=== PATIENT | female | born 1960 | race Hispanic/Latino ===

== ENCOUNTER 2018-01-12 02:14 | Emergency (ER) | payer OTHER ==
[~2018-01-12] VITALS: Ht 162.6 cm; Wt 68.0 kg
[~2018-01-12 02:14] MED LIST: ACETAMINOPHEN-1 EAC4 PO; ALPRAZOLAM0.5 MG PO; ASPIRIN ENTERI325 MG PO; ASPIRIN81 MG PO; Aspirin PO; GUAIFENESIN DM118 ML NG; IBUPROFEN400 MG PO; KLONOPIN1 MG; LEXAPRO10 MG PO; LEXAPRO20 MG PO; LORCET 10-6501 EACH PO; MELOXICAM7.5 MG PO; NICODERM CQ1 EAC2 TOP; NITROSTAT0.4 MG SL; NORCO 10-325 T1 EACH PO; NORCO 5-325 TA1 EACH PO; OMEPRAZOLE40 MG PO; PEPCID20 MG PO; POTASSIUM PHOSPHATE PO; PREDNISONE20 MG PO; SOMA250 MG; SOMA350 MG PO; TESSALON PERLE100 MG PO; TRAZODONE HCL50 MG PO; ULTRAM 50MG50 MG PO; VIBRAMYCIN100 MG PO
--- OUTSIDE RECORDS SUMMARY | 2018-01-12 02:17 | XMS REPORT ---
Author Author [facility] Address Unknown Phone Unavailable Care Team Providers Care Commercial Manager Name Role Phone LUIS SULLIVAN Unavailable Unavailable Problems This patient has no known problems. Allergies, Adverse Reactions, Alerts This patient has no known allergies or adverse reactions. Medications This patient has no known medications. Results Test Description Test Time Test Comments Text Results Atomic Results Result Comments CHEST 2 VIEWS [place] [address] Patient Name: DEB RENEE MR #: [id number] : 1960 Age/Sex: 56/F Req #: [id number] Adm Physician: Ordered by: LUIS SULLIVAN MD Report #: [id number] Location: ER Room/Bed: Procedure: [id number] DX/CHEST 2 VIEWS Exam Date: 06/15/17 Exam Time : 2215 REPORT STATUS: Signed EXAM: CHEST 2 VIEWS, PA and lateral DATE : 06/15/2017 10:14 PM Time stamp on exam: 2214 hours INDICATION: Back pain left side COMPARISON: AP view of the chest July 11, [address] of the chest July 11, 2016 FINDINGS: LINES/TUBES: None LUNGS: Emphysematous changes and pulmonary nodules in the upper lungs. PLEURA: No effusions or pneumothorax. HEART AND MEDIASTINUM: Normal size and contour. BONES AND SOFT TISSUES: No acute findings. Degenerative changes of the lower thoracic spine. IMPRESSION: No acute findings. Emphysematous changes and pulmonary nodules in the upper lungs as seen on prior CT. The patient is due for routine follow-up of nodules with CT imaging (CT of the chest without IV contrast low-dose protocol) if not already performed at an outside facility. Signed by: Dr. Kaiden Gould M.D. on 06/15/2017 10:46 PM Dictated By: KAIDEN GOULD MD 44 Transcribed By: CHIRAG on 2245 COPY TO: LUIS SULLIVAN MD
[2018-01-12] MEDS ORDERED: ASPIRIN 81 MG CHEW TAB PO ONE (02:45)
[2018-01-12 02:57] LABS: BASOPHILS # (AUTO) 0.1 (0.0-0.1); BASOPHILS % 0.6 % (0.0-1.0); EOSINOPHILS % 0.5 % (0.0-6.0); HEMATOCRIT 34.3 % (34.2-44.1); HEMOGLOBIN 11.6 g/dL (12.0-16.0); MEAN CORPUSCULAR HEMOGLOBIN 30.6 pg (28-32); MEAN CORPUSCULAR HGB CONC 33.8 g/dL (31-35); MEAN CORPUSCULAR VOLUME 90.5 fL (81-99); MONOCYTES # (AUTO) 0.7 (0.2-0.8); MONOCYTES % 8.5 % (4.4-11.3); NEUTROPHILS # (AUTO) 5.5 (2.1-6.9); PLATELET COUNT 177 x10e3/uL (140-360); RED BLOOD COUNT 3.79 x10e6/uL (3.6-5.1); RED CELL DISTRIBUTION WIDTH 13.2 % (11.7-14.4)
[2018-01-12 03:02] LABS: CLARITY,URINE CLEAR (CLEAR); COLOR,URINE YELLOW (YELLOW); LEUKOCYTE ESTERASE ,URINE NEGATIVE (NEGATIVE); NITRITE,URINE NEGATIVE (NEGATIVE); PROTEIN,URINE DIPSTICK TRACE (NEGATIVE)
[2018-01-12 03:03] LABS: BILIRUBIN,URINE NEGATIVE (NEGATIVE); KETONES,URINE NEGATIVE (NEGATIVE); URINE UROBILINOGEN 0.2 mg/dL (0.2 - 1)
[2018-01-12 03:10] LABS: BACTERIA,URINE RARE /HPF; EPITHELIAL CELLS,URINE RARE /LPF; INR 1.09; PROTHROMBIN TIME 13.3 seconds (11.9-14.5); RBC,URINE 0-5 /HPF (0-5); WBC,URINE (MAN) 0-5 /HPF (0-5)
[2018-01-12 03:11] LABS: PARTIAL THROMBOPLASTIN TIME 32.6 seconds (23.8-35.5)
[2018-01-12 03:18] LABS: ALANINE AMINOTRANSFERASE 16 IU/L (0-55); ALBUMIN 3.5 g/dL (3.5-5.0); ALBUMIN/GLOBULIN RATIO 1.2 (0.8-2.0); ALKALINE PHOSPHATASE 65 IU/L (40-150); ANION GAP 10.2 mmol/L (8-16); BLOOD UREA NITROGEN 5 mg/dL (7-26); BUN/CREATININE RATIO 7 (6-25); CALCIUM 8.4 mg/dL (8.4-10.2); CARBON DIOXIDE 17 mmol/L (22-29); CHLORIDE 112 mmol/L (98-107); CREATINE KINASE 578 IU/L (29-168); CREATININE, SERUM 0.68 mg/dL (0.57-1.11); EST GLOMERULAR FILTRATION RATE > 60 ML/MIN (60-); GLUCOSE 110 mg/dL (74-118); POTASSIUM 3.2 mmol/L (3.5-5.1); SODIUM 136 mmol/L (136-145)
--- NOTE | 2018-01-12 03:29 | Diagnostic Imaging Report ---
EXAM: CHEST SINGLE (PORTABLE), AP 1 view INDICATION: Chest pain COMPARISON: PA and lateral view of the chest June 15, 2017 FINDINGS: LINES/TUBES: None LUNGS: No consolidations or edema. Subsegmental atelectasis right lung base. PLEURA: No effusions or pneumothorax. HEART AND MEDIASTINUM: Normal size and contour. BONES AND SOFT TISSUES: No acute findings. IMPRESSION: Subsegmental atelectasis right lung base. Signed by: Dr. Angelita Pyle M.D. on 01/12/2018 3:25 AM
[2018-01-12] MEDS ORDERED: KETOROLAC TROMETHAMINE 30 MG/ML VIAL IV STA (03:39)
== END 2018-01-12 03:50 | disposition home or self-care (01) ==
LOC: ER 02:14
DX: R07.89 Other chest pain (principal); G89.29 Other chronic pain; F31.9 Bipolar disorder, unspecified; F17.200 Nicotine dependence, unspecified, uncomplicated
CPT/HCPCS: 36415; 71045; 80053; 81001; 82550; 82553; 83880; 84484; 85025; 85610; 85730; 93005; 99283

== ENCOUNTER → 2020-09-13 | Day surgery (SDC) | payer MEDICARE, OTHER ==
[2020-09-09 14:48] LABS: BASOPHILS % 0.7 % (0.0-1.0); EOSINOPHILS # (AUTO) 0.1 (0.0-0.4); HEMATOCRIT 40.3 % (34.2-44.1); HEMOGLOBIN 12.1 g/dL (12.0-16.0); LYMPHOCYTES # (AUTO) 1.8 (1.0-3.2); LYMPHOCYTES % 30.5 % (18.0-39.1); MEAN CORPUSCULAR HEMOGLOBIN 26.9 pg (28-32); MEAN CORPUSCULAR VOLUME 89.6 fL (81-99); MONOCYTES # (AUTO) 0.6 (0.2-0.8); MONOCYTES % 9.6 % (4.4-11.3); NEUTROPHILS # (AUTO) 3.5 (2.1-6.9); PLATELET COUNT 222 x10e3/uL (140-360); RED CELL DISTRIBUTION WIDTH 13.5 % (11.7-14.4)
[2020-09-09 15:03] LABS: ANION GAP 11.6 mmol/L (8-16); CALCIUM 9.5 mg/dL (8.4-10.2); CREATININE, SERUM 1.05 mg/dL (0.57-1.11); POTASSIUM 4.6 mmol/L (3.5-5.1)
[~2020-09-13] MED LIST changes: +ADDERALL XR 3030 MG PO; +ALBUTEROL0.63 MG/3 INH; +BUPIVACAINE HCL 0.5% INJ 30 ML VIAL INJ ONE; +BUSPIRONE HCL10 MG PO; +CEFAZOLIN SOD 1 GM VIAL ONE; +CEFAZOLIN SOD 1 GM/NS 50ML 50 ML IV ONE; +CHANTIX1 EACH; +DEXAMETHASONE SOD PHOS INJ 4 MG/ML VIAL ONE; +FENTANYL CITRATE/PF 100MCG/2 ML INJ ONE; +FLOVENT DISKUS50 MCG INH; +GABAPENTIN300 MG PO; +HEPARIN SOD (PORCINE) 1000 UNIT/ML 30ML ONE; +HEPARIN SOD (PORCINE) 5,000 UNIT/ML VIAL ONE; +HEPARIN SOD/SOD CHLORIDE 1,000 ML ONE; +HYDROMORPHONE 2MG/ML 2 MG/ML ML ONE; +LINZESS72 MCG PO; +MIDAZOLAM HCL 2 MG/2 ML VIAL ONE; +MUPIROCIN 2% OINT 22 GM TUBE ONE; +ONDANSETRON HCL INJ 2MG/ML 2ML 2 MG/ML VIAL ONE; +PANTOPRAZOLE SO40 MG PO; +PAXIL40 MG PO; +PROAIR HFA INH8.5 GM INH; +PROPOFOL IV EMULSION 10 MG/ML 20 ML VIAL ONE; +PROTAMINE SULFATE 10 MG/ML 5 ML VIAL ONE; +REXULTI3 MG PO; +ROCURONIUM BROMIDE 10 MG/ML 5ML VIAL IV ONE; +SEVOFLURANE INHAL SOLN 250 ML PEN BTL ONE; +SODIUM CHLORIDE 0.9% 500ML 500 ML ONE; +SUBOXONE 8 MG-1 EAC2 PO; +SUGAMMADEX SODIUM 200 MG/2 ML VIAL IV ONE; +THROMBIN FOR SOLN 5,000 UNIT VIAL ONE; +WELLBUTRIN SR150 MG PO
[2020-09-13 12:20] VITALS: BP 126/84
== END | disposition home or self-care (01) ==
LOC: OR 06:38
PROVIDERS: ATTEND Surgery
DX: C38.1 Malignant neoplasm of anterior mediastinum (principal); J44.9 Chronic obstructive pulmonary disease, unspecified; K21.9 Gastro-esophageal reflux disease without esophagitis; K44.9 Diaphragmatic hernia without obstruction or gangrene; F17.210 Nicotine dependence, cigarettes, uncomplicated; Z01.810 Encounter for preprocedural cardiovascular examination; Z01.812 Encounter for preprocedural laboratory examination; Z01.818 Encounter for other preprocedural examination; Z20.828 Contact with and (suspected) exposure to other viral communicable diseases; Z88.8 Allergy status to other drugs, medicaments and biological substances
CPT/HCPCS: 36415; 39401; 71045; 71046; 80048; 85025; 87071; 87075; 87102; 87116; 87205; 87206 ×2; 88172; 88173; 88305; 88312; 88331; 88342; 93005; A4467; J0690 ×2; J1100; J1170; J1644; J2250; J2405; J2704; J3010; J7040; U0002; J2720

== ENCOUNTER 2021-07-02 20:08 | Inpatient (IN) | payer MEDICARE, OTHER ==
[~2021-07-02] VITALS: Ht 165.1 cm; Wt 68.9 kg
[~2021-07-02 20:08] MED LIST changes: -ALBUTEROL0.63 MG/3 INH; +ALBUTEROL0.63 MG/3 NEB; -BUPIVACAINE HCL 0.5% INJ 30 ML VIAL INJ ONE; -CEFAZOLIN SOD 1 GM VIAL ONE; -CEFAZOLIN SOD 1 GM/NS 50ML 50 ML IV ONE; -DEXAMETHASONE SOD PHOS INJ 4 MG/ML VIAL ONE; -FENTANYL CITRATE/PF 100MCG/2 ML INJ ONE; -HEPARIN SOD (PORCINE) 1000 UNIT/ML 30ML ONE; -HEPARIN SOD (PORCINE) 5,000 UNIT/ML VIAL ONE; -HEPARIN SOD/SOD CHLORIDE 1,000 ML ONE; -HYDROMORPHONE 2MG/ML 2 MG/ML ML ONE; -MIDAZOLAM HCL 2 MG/2 ML VIAL ONE; -MUPIROCIN 2% OINT 22 GM TUBE ONE; -ONDANSETRON HCL INJ 2MG/ML 2ML 2 MG/ML VIAL ONE; -PROPOFOL IV EMULSION 10 MG/ML 20 ML VIAL ONE; -PROTAMINE SULFATE 10 MG/ML 5 ML VIAL ONE; -ROCURONIUM BROMIDE 10 MG/ML 5ML VIAL IV ONE; -SEVOFLURANE INHAL SOLN 250 ML PEN BTL ONE; -SODIUM CHLORIDE 0.9% 500ML 500 ML ONE; -SUGAMMADEX SODIUM 200 MG/2 ML VIAL IV ONE; -THROMBIN FOR SOLN 5,000 UNIT VIAL ONE
[2021-07-02 21:18] LABS: BASOPHILS % 0.3 % (0.0-1.0); EOSINOPHILS # (AUTO) 0.2 (0.0-0.4); EOSINOPHILS % 2.3 % (0.0-6.0); HEMOGLOBIN 10.2 g/dL (12.0-16.0); LYMPHOCYTES # (AUTO) 0.7 (1.0-3.2); LYMPHOCYTES % 10.7 % (18.0-39.1); MEAN CORPUSCULAR HEMOGLOBIN 28.2 pg (28-32); MEAN CORPUSCULAR HGB CONC 30.9 g/dL (31-35); MEAN CORPUSCULAR VOLUME 91.2 fL (81-99); MONOCYTES # (AUTO) 0.6 (0.2-0.8); NEUTROPHILS # (AUTO) 5.3 (2.1-6.9); NEUTROPHILS % 77.4 % (38.7-80.0); PLATELET COUNT 173 x10e3/uL (140-360); RED BLOOD COUNT 3.62 x10e6/uL (3.6-5.1); RED CELL DISTRIBUTION WIDTH 13.3 % (11.7-14.4)
[2021-07-02 21:39] LABS: ALBUMIN 4.1 g/dL (3.5-5.0); ALBUMIN/GLOBULIN RATIO 1.5 (0.8-2.0); ANION GAP 12.1 mmol/L (8-16); CALCIUM 8.9 mg/dL (8.4-10.2); POTASSIUM 3.1 mmol/L (3.5-5.1)
[2021-07-02 21:45] LABS: CREATINE KINASE MB 4.5 ng/mL (0-5.0)
[2021-07-02 22:55] LABS: CREATININE, SERUM 1.17 mg/dL (0.57-1.11)
[2021-07-03] VITALS (9 sets, daily range): BP systolic 110–155; BP diastolic 60–90
[2021-07-03] MEDS: SODIUM CHLORIDE 0.9% 1000ML 1,000 ML IV SCH ×4 (02:03→15:00)
[2021-07-03] MEDS ORDERED: ATIVAN1 MG PO (03:55)
[2021-07-03] MEDS ORDERED: ASPIRIN81 MG PO (03:57)
[2021-07-03] MEDS ORDERED: PROMETHAZINE HC25 M1 PO (03:59)
[2021-07-03 12:31] LABS: BASOPHILS % 0.5 % (0.0-1.0); EOSINOPHILS # (AUTO) 0.2 (0.0-0.4); HEMATOCRIT 32.9 % (34.2-44.1); HEMOGLOBIN 10.2 g/dL (12.0-16.0); LYMPHOCYTES # (AUTO) 0.6 (1.0-3.2); LYMPHOCYTES % 9.2 % (18.0-39.1); MEAN CORPUSCULAR HEMOGLOBIN 28.4 pg (28-32); MEAN CORPUSCULAR VOLUME 91.6 fL (81-99); MONOCYTES # (AUTO) 0.6 (0.2-0.8); MONOCYTES % 9.5 % (4.4-11.3); NEUTROPHILS # (AUTO) 4.7 (2.1-6.9); NEUTROPHILS % 77.6 % (38.7-80.0); PLATELET COUNT 143 x10e3/uL (140-360); RED BLOOD COUNT 3.59 x10e6/uL (3.6-5.1); RED CELL DISTRIBUTION WIDTH 13.4 % (11.7-14.4)
[2021-07-03 12:48] LABS: ALBUMIN 3.5 g/dL (3.5-5.0); ALBUMIN/GLOBULIN RATIO 1.3 (0.8-2.0); ANION GAP 11.7 mmol/L (8-16); CALCIUM 8.7 mg/dL (8.4-10.2); CREATININE, SERUM 0.87 mg/dL (0.57-1.11); POTASSIUM 3.7 mmol/L (3.5-5.1)
[2021-07-03] MEDS ORDERED: PROMETHAZINE HCL 25 MG TAB PO PRN (14:45)
[2021-07-03] MEDS ORDERED: LORAZEPAM 1 MG TAB PO PRN (14:45)
[2021-07-03] MEDS: NICOTINE 21 MG/EA PATCH TOP SCH (16:25)
[2021-07-03] MEDS: METOCLOPRAMIDE HCL 10 MG TAB PO SCH ×2 (16:25→21:40)
[2021-07-03] MEDS: GABAPENTIN 300 MG CAP PO SCH ×2 (16:25→21:39)
[2021-07-03] MEDS: FAMOTIDINE 20 MG TAB PO SCH (16:25)
[2021-07-03] MEDS: BUSPIRONE HCL 10 MG TABLET PO SCH ×2 (16:29→21:39)
[2021-07-03] MEDS: MORPHINE SULFATE INJ 2 MG/ML SYR IV PRN (16:48)
[2021-07-03] MEDS: ALBUTEROL/IPRATROPIUM 3 ML NEB NEB SCH ×2 (20:17→23:50)
[2021-07-04] VITALS: BP 115/73
[2021-07-04] MEDS: ALBUTEROL/IPRATROPIUM 3 ML NEB NEB SCH ×4 (03:02→15:00)
[2021-07-04] MEDS: SODIUM CHLORIDE 0.9% 1000ML 1,000 ML IV SCH ×3 (03:26→14:45)
[2021-07-04 04:00] VITALS: BP 136/64
[2021-07-04 06:07] LABS: BASOPHILS % 0.4 % (0.0-1.0); EOSINOPHILS # (AUTO) 0.2 (0.0-0.4); EOSINOPHILS % 2.7 % (0.0-6.0); HEMATOCRIT 33.3 % (34.2-44.1); LYMPHOCYTES # (AUTO) 0.5 (1.0-3.2); LYMPHOCYTES % 6.4 % (18.0-39.1); MEAN CORPUSCULAR HEMOGLOBIN 28.2 pg (28-32); MEAN CORPUSCULAR VOLUME 93.8 fL (81-99); MONOCYTES # (AUTO) 0.6 (0.2-0.8); MONOCYTES % 8.5 % (4.4-11.3); NEUTROPHILS # (AUTO) 5.8 (2.1-6.9); NEUTROPHILS % 81.4 % (38.7-80.0); PLATELET COUNT 151 x10e3/uL (140-360); RED BLOOD COUNT 3.55 x10e6/uL (3.6-5.1); RED CELL DISTRIBUTION WIDTH 13.5 % (11.7-14.4)
[2021-07-04 06:34] LABS: ANION GAP 9.5 mmol/L (8-16); CALCIUM 8.3 mg/dL (8.4-10.2); CREATININE, SERUM 0.83 mg/dL (0.57-1.11); POTASSIUM 3.5 mmol/L (3.5-5.1)
[2021-07-04 06:58] LABS: THYROID STIMULATING HORMONE 0.293 uIU/mL (0.350-4.940)
[2021-07-04] MEDS: METOCLOPRAMIDE HCL 10 MG TAB PO SCH ×3 (07:45→16:30)
[2021-07-04] MEDS: FAMOTIDINE 20 MG TAB PO SCH ×2 (07:45→16:30)
[2021-07-04 07:46] VITALS: BP 138/67
[2021-07-04] MEDS ORDERED: PANTOPRAZOLE SOD 40 MG TABEC PO SCH (09:00)
[2021-07-04] MEDS ORDERED: BUPROPION HCL SR 150 MG TAB PO SCH (09:00)
[2021-07-04] MEDS ORDERED: PAROXETINE HCL 20 MG TAB PO SCH (09:00)
[2021-07-04] MEDS: BUSPIRONE HCL 10 MG TABLET PO SCH ×2 (09:08→15:36)
[2021-07-04] MEDS: NICOTINE 21 MG/EA PATCH TOP SCH (09:08)
[2021-07-04] MEDS: GABAPENTIN 300 MG CAP PO SCH ×2 (09:08→15:36)
[2021-07-04] MEDS: MORPHINE SULFATE INJ 2 MG/ML SYR IV PRN (09:09)
[2021-07-04] MEDS ORDERED: ACETAMINOPHEN 325 MG TAB PO PRN (09:15)
[2021-07-04] MEDS ORDERED: MORPHINE SULFATE INJ 4 MG/ML INJ 1ML IV PRN (09:45)
[2021-07-04 12:19] VITALS: BP 117/57
[2021-07-04 16:08] VITALS: BP 114/64
== END 2021-07-04 18:06 | disposition hospice, home (50) | DRG 644 ==
LOC: ER 20:58 → INTOOBSV 22:43 → OBSVTOIN 22:43 → ERHOLD 22:43 → MED/SURG 07-03 03:32
PROVIDERS: ADMIT Internal Medicine; ATTEND Internal Medicine
DX: E22.2 Syndrome of inappropriate secretion of antidiuretic hormone (principal); C15.9 Malignant neoplasm of esophagus, unspecified; C34.90 Malignant neoplasm of unspecified part of unspecified bronchus or lung; R53.1 Weakness; R62.7 Adult failure to thrive; R13.10 Dysphagia, unspecified; F32.A Depression, unspecified; F41.9 Anxiety disorder, unspecified; Z91.81 History of falling; Z88.8 Allergy status to other drugs, medicaments and biological substances; Z68.25 Body mass index [BMI] 25.0-25.9, adult
CPT/HCPCS: 36415; 70450; 80048; 80053; 82550; 82553; 84443; 84484; 85025; 99284; J2270; J7030; U0002

== ENCOUNTER 2023-02-06 22:14 | Emergency (ER) | payer MEDICARE, OTHER ==
[~2023-02-06] VITALS: Ht 317.5 cm; Wt 68.9 kg
[~2023-02-06 22:14] MED LIST changes: +ATIVAN1 MG PO; +PROMETHAZINE HC25 M1 PO
[2023-02-06 22:45] LABS: BASOPHILS % 0.3 % (0.0-1.0); EOSINOPHILS # (AUTO) 0.1 (0.0-0.4); EOSINOPHILS % 1.8 % (0.0-6.0); HEMATOCRIT 35.4 % (34.2-44.1); HEMOGLOBIN 10.9 g/dL (12.0-16.0); LYMPHOCYTES # (AUTO) 0.6 (1.0-3.2); LYMPHOCYTES % 9.4 % (18.0-39.1); MEAN CORPUSCULAR HEMOGLOBIN 28.6 pg (28-32); MEAN CORPUSCULAR HGB CONC 30.8 g/dL (31-35); MEAN CORPUSCULAR VOLUME 92.9 fL (81-99); MONOCYTES # (AUTO) 0.5 (0.2-0.8); MONOCYTES % 7.8 % (4.4-11.3); NEUTROPHILS # (AUTO) 4.9 (2.1-6.9); NEUTROPHILS % 80.5 % (38.7-80.0); PLATELET COUNT 148 x10e3/uL (140-360); RED BLOOD COUNT 3.81 x10e6/uL (3.6-5.1); RED CELL DISTRIBUTION WIDTH 15.3 % (11.7-14.4)
[2023-02-06 23:00] LABS: CLARITY,URINE CLEAR (CLEAR); COLOR,URINE YELLOW (YELLOW); KETONES,URINE NEGATIVE (NEGATIVE); LEUKOCYTE ESTERASE ,URINE NEGATIVE (NEGATIVE); NITRITE,URINE NEGATIVE (NEGATIVE); PROTEIN,URINE DIPSTICK TRACE (NEGATIVE); URINE UROBILINOGEN 0.2 mg/dL (0.2 - 1)
[2023-02-06 23:06] LABS: ALBUMIN/GLOBULIN RATIO 0.9 (0.8-2.0); ANION GAP 12.2 mmol/L (8-16); CALCIUM 9.1 mg/dL (8.4-10.2); CREATININE, SERUM 0.92 mg/dL (0.57-1.11); POTASSIUM 4.2 mmol/L (3.5-5.1)
[2023-02-06 23:07] LABS: BACTERIA,URINE FEW /HPF; EPITHELIAL CELLS,URINE RARE /LPF; RBC,URINE 0-5 /HPF (0-5); WBC,URINE (MAN) 0-5 /HPF (0-5)
[2023-02-06] MEDS ORDERED: IOPAMIDOL 370 MG/ML 100 ML INFUS..BTL INJ ONE (23:21)
[2023-02-07 00:12] VITALS: BP 142/88; PULSE 86; RESP 16; TEMP 99; O2SAT 98
== END 2023-02-07 00:02 | disposition home or self-care (01) ==
LOC: ER 22:38
DX: C34.90 Malignant neoplasm of unspecified part of unspecified bronchus or lung (principal); G89.29 Other chronic pain; C78.7 Secondary malignant neoplasm of liver and intrahepatic bile duct
CPT/HCPCS: 36415; 74177; 80053; 81001; 83690; 85025; 99284; Q9967